=== PATIENT | female | born 1955 | race Caucasian/White ===

== ENCOUNTER 2024-12-15 13:24 | Emergency (ER) | payer MEDICARE, SELFPAY ==
[2024-12-15 13:27] VITALS: BMI 32.9
--- NOTE | 2024-12-15 13:29 | EKG_ITS ---
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
[2024-12-15 13:43] VITALS: BP 146/74; PULSE 70; RESP 18; TEMP 36.7; O2SAT 95
--- NOTE | 2024-12-15 13:45 | XR_ITS ---
Examination: AP upright portable chest single view TECHNIQUE: Portable AP upright chest single view Exam date and time: December 15, 2024, 1407 hours Comparison December 18, 2023 INDICATIONS: Onset chest pain today. FINDINGS: Normal heart size. No pneumonia or pulmonary edema. Prominent osteopenia. IMPRESSION: No pneumonia or pulmonary edema
--- NOTE | 2024-12-15 13:46 | EDNOTE_ITS ---
ED Chest Pain RME/HPI General Chief Complaint: Chest Pain Stated Complaint: LEFT FACE NUMBNESS/LEFT ARM PAIN SINCE 1300 Time Seen by Provider: 12/15/24 13:38 Arrival date/time: 12/15/24 13:24 RME / HPI RME / HPI narrative: 68-year-old female patient was brought in by family for evaluation regarding palpitation. Patient feels like having recurrence of A-fib started last night, it comes and goes getting worst for the last 30 minutes. Patient denies any chest pain. Denies any shortness of breath. Patient is currently taking labetalol, hydrochlorothiazide and lisinopril. Was seen by her horse identifier last year for one-time episode of A-fib. Currently not taking any blood thinner. Patient denies any cough denies any other complaints no medications taken prior travel. Related Data Allergies Allergy/AdvReac Type Severity Reaction Status Date / Time No Known Allergies Allergy Verified 12/15/24 13:26 Review of Systems Review of Systems Narrative Review of Systems: Review of system reviewed and within normal limits except mentioned in HPI ED Exam Narrative Physical exam: VITAL SIGNS: Reviewed. GENERAL APPEARANCE: Alert and interactive, follows commands, no acute distress, HEAD AND FACE: Non-traumatic. ENT: PERRL, pink conjunctivitis, eyelid no trauma, Mucous membrane moist. NECK: Supple, nontender, no nuchal rigidity. CHEST: No tenderness, no crepitus, no paradoxical movement, no retractions. LUNGS: Clear, well ventilated, symmetric, no rales, no wheezing, no ronchi, no stridor, good breath sounds bilaterally. HEART: Regular rate, regular rhythm, no murmur, no gallops. ABDOMEN: Soft, positive bowel sounds, nondistended, no guarding, nontender, no rebound, no masses, RECTAL: Deferred. GENITAL: Deferred. NEUROLOGICAL: Gross motor function intact sensory function intact, Appropriate for age. MUSCULOSKELETAL: low back nontender, full range of motion. EXTREMITIES: Nontender, full range of motion. SKIN: Color pink, dry, no rash, no lacerations, no abrasions, no contusions. LYMPHATICS: Deferred. Course Quality Measures none Orders Category Date Time Status [employer] Q4H START 00 Care 12/15/24 13:45 Active EKG (ED ONLY) *Do not use* NOW Care 12/15/24 13:29 Completed EKG (ED Only) Stat Exams 12/15/24 13:29 Draft XR chest 1V Stat Exams 12/15/24 13:45 Completed B-Type Natriuretic Peptide Stat Lab 12/15/24 13:54 Completed CBC Stat Lab 12/15/24 13:54 Completed Comprehensive Metabolic Panel Stat Lab 12/15/24 13:54 Completed Drug Screen,Urine Stat Lab 12/15/24 14:00 Completed Partial Thromboplastin Time Stat Lab 12/15/24 13:54 Completed Prothrombin Time with INR Stat Lab 12/15/24 13:54 Completed T4 (Thyroxine) Stat Lab 12/15/24 13:54 Completed TSH [Thyroid Stimulating Hormone] Stat Lab 12/15/24 13:54 Completed Troponin I Stat Lab 12/15/24 13:54 Completed Urinalysis, C/S if Indicated Stat Lab 12/15/24 14:00 Completed Vital Signs Vital signs: Vital Signs Temperature 98.1 F 12/15/24 13:43 Pulse Rate 70 12/15/24 13:43 Respiratory Rate 18 12/15/24 13:43 Blood Pressure 146/74 H 12/15/24 13:43 Pulse Oximetry (%) 95 12/15/24 13:43 Oxygen Delivery Method Room Air 12/15/24 13:43 Chest Pain MDM Narrative MDM Narrative:: 68-year-old female patient was brought in by family for evaluation regarding palpitation. Patient feels like having recurrence of A-fib started last night, it comes and goes getting worst for the last 30 minutes. Patient denies any chest pain. Denies any shortness of breath. Patient is currently taking labetalol, hydrochlorothiazide and lisinopril. Was seen by her horse identifier last year for one-time episode of A-fib. Currently not taking any blood thinner. Patient denies any cough denies any other complaints no medications taken prior travel. EKG shows sinus rhythm, ventricular rate of 84 beats minute, no ST segment elevation depression noted. Patient's workup today including cardiac workup all came back normal. Patient was placed on a monitor, cardiac, and it remains normal sinus rhythm, full throughout, no abnormality noted. Chest x-ray came back unremarkable. Patient's verbalized no recurrence of palpitation noted in the ED. Patient was advised to see horse identifier Tuesday. Patient data External records reviewed:: None Clinical information provided by:: patient and family Social determinants that could affect healthcare access:: none Patient has the following chronic illnesses:: Hypertension How is presenting disease/condition affected by chronic disease/condition?: exacerbated by Evaluation data The following diagnostics were reviewed and interpreted by me:: lab results, radiology exam(s) and EKG tracing(s) Lab and/or radiology exams considered but not ordered:: None Interpretation Summary: EKG shows sinus rhythm, ventricular rate of 84 beats minute, no ST segment elevation depression noted. Patient's workup today including cardiac workup all came back normal. Patient was placed on a monitor, cardiac, and it remains normal sinus rhythm, full throughout, no abnormality noted. Medications / Prescriptions Medications or Prescriptions considered but not ordered:: None Medication administrations:: None Consultations Consultation(s) initiated? (list below): No Diagnosis Chest Pain Differential Diagnosis: chest pain and other (A-fib) Most likely diagnosis given after review of the tests above:: Palpitation Admission Indicated Admission indicated?: not indicated Admission Request Was there a request for admission?: No Disposition Plan Disposition Plan: Discharge Discharge Attestation Discharge Attestation: The patient and all family members were given an opportunity to ask questions and understood the discharge instructions. Discharge instructions specifically effects, indications for sooner follow up or return to the emergency department, and the expected course of current diagnosis. Patient condition: Stable Discharge Plan Plan Patient Disposition: HOME (Self Care) Discharge Disposition comment: stable Prescriptions/Referrals Referrals: Blanca Kimbrough MD [Primary Care Provider] - In 1 week Problem List Clinical Impression: Palpitations Patient/Caregiver Discharge Instructions Discharge Activity: activity as tolerated Education Materials: ED Palpitations Additional Instructions: Thank you for the opportunity for serving you today. You are stable for discharged . You are advised to: Follow-up with your horse identifier in 1 to 2 days Return to ED for worsening of symptoms Print Language: Togolese Stand Alone Forms: Lydia Award Info., Patient Portal Info Letter JESSENIA/JACKIE Supervising Physician ANIL Supervising Physician: MD Yamel
[2024-12-15 14:13] LABS: Collection Type, Urine Clean Catch
[2024-12-15 14:15] LABS: Basophils # (Auto) 0.1 Thou/mm3 (0.0-0.2); Basophils % (Auto) 1 % (0-2.5); Eosinophils # (Auto) 0.2 Thou/mm3 (0.0-0.5); Eosinophils % (Auto) 2 % (0-10); Hematocrit 35.6 % (36.0-46.0); Hemoglobin 11.8 g/dL (12.0-16.0); Immature Granulocytes % (Auto) 0 % (0-0); Immature Granulocytes Auto 0.03 Thou/mm3 (0.00-0.00); Lymphocytes # (Auto) 1.2 Thou/mm3 (1.0-4.8); Lymphocytes % (Auto) 15 % (10-50); Mean Corpuscular HGB Conc 33.1 g/dl (31.0-37.0); Mean Corpuscular Hemoglobin 26.1 pg (25.0-35.0); Mean Corpuscular Volume 79 fL (80-100); Monocytes # (Auto) 0.8 Thou/mm3 (0.0-0.8); Monocytes % (Auto) 10 % (0-12); Neutrophils # (Auto) 5.5 Thou/mm3 (1.8-7.7); Neutrophils % (Auto) 71 % (37-80); Nucleated Red Blood Cell % 0 /100 WBC (0); Platelet Count 233 Thou/mm3 (140-440); RDW Standard Deviation 45.5 fL (36.4-46.3); Red Blood Count 4.52 Miln/mm3 (4.00-5.20); White Blood Count 7.7 Thou/mm3 (3.6-11.0)
[2024-12-15 14:18] LABS: Bilirubin,Urine Negative (Negative); Blood,Urine Negative (Negative); Clarity,Urine Clear (Clear/Hazy); Color,Urine Lt-Yellow (Lt Yel-Yel); Culture Indicated,Urine Not Indicated; Glucose, Urine Negative (Negative); Hyaline Casts,Urine < 1 /hpf (0-1); Ketones,Urine Negative (Negative); Leukocyte Esterase,Urine Positive (Negative); Nitrite,Urine Negative (Negative); PH,Urine 6.5 (5.0-7.0); Protein,Urine Negative (Neg - Trace); RBC,Urine 2 /hpf (0-3); Specific Gravity,Urine 1.011 (1.001-1.035); Squamous Epithelial Cell,Urine < 1 /hpf (0-5); Urobilinogen,Urine Negative mg/dL (0.0-1.0); WBC,Urine 2 /hpf (0-5)
[2024-12-15 14:28] LABS: Amphetamine/Methamp Scrn,U Negative (Negative); Barbiturate Screen,Urine Negative (Negative); Benzodiazepines Screen,Urine Negative (Negative); Benzoylecgonine Screen, Ur Negative (Negative); Fentanyl Screen,Urine Negative (Negative); Opiate Screen,Urine Negative (Negative); THC Screen,Urine Negative (Negative)
[2024-12-15 14:33] LABS: Partial Thromboplastin Time 25.7 Seconds (22.0-36.0); Prothrombin Time 10.9 Seconds (9.0-12.2)
[2024-12-15 14:37] LABS: B-Type Natriuretic Peptide 36 pg/mL (0-100)
[2024-12-15 14:41] LABS: Alanine Aminotransferase 26 U/L (10-49); Albumin, Serum 4.5 gm/dL (3.4-4.8); Alkaline Phosphatase 58 U/L (46-116); Anion Gap 9 (7-16); Aspartate Amino Transferase 21 U/L (0-34); BUN/Creatinine Ratio 21 Ratio (12-20); Bilirubin,Total 0.9 mg/dL (0.3-1.2); Blood Urea Nitrogen 19 mg/dL (9-23); Carbon Dioxide 25.6 mMol/L (20.0-31.0); Chloride 107 mMol/L (98-107); Creatinine (Component) 0.9 mg/dL (0.6-1.3); Estimated Creatinine Clearance 59.2 mL/min (>60); Globulin 2.3 gm/dL (2.3-3.5); Glucose 117 mg/dL (74-106); Osmolality,Calculated 286 (275-295); Potassium 3.6 mMol/L (3.4-5.1); Sodium 142 mMol/L (136-145); Thyroid Stimulating Hormone 1.18 uIU/mL (0.55-4.78); Total Protein 6.8 gm/dL (5.7-8.2); Troponin I < 0.002 ng/mL (0.0-0.045); eGFR > 60 See Note
[2024-12-15 15:03] VITALS: BP 101/66; PULSE 70; PULSE 73; RESP 18; TEMP 36.6; O2SAT 96
[2024-12-15 15:03] LABS: T4 (Thyroxine) 9.6 mcg/dL (4.5-10.9)
--- NOTE | 2024-12-15 15:19 | PC.NURSE ---
PT CAME IN TO ED WITH FOR HEART PALPATIONS THAT STARTED YESTERDAY. PT STATES THAT LEFTSIDE NUMBNESS TO FACE AND HAND
[2024-12-15 16:00] VITALS: BP 113/64; PULSE 66; RESP 15; O2SAT 97
== END 2024-12-15 16:00 | disposition home or self-care (01) ==
PROVIDERS: Nurse Practitioner Family; Emergency Provider Emergency Medicine; PCP Family Medicine
DX: R00.2 Palpitations (principal); R07.9 Chest pain, unspecified; R94.31 Abnormal electrocardiogram [ECG] [EKG]; I10 Essential (primary) hypertension; I48.91 Unspecified atrial fibrillation
CPT/HCPCS: 36415; 71045; 80053; 80307; 81001; 83880; 84436; 84443; 84484; 85025; 85610; 85730; 93005; 99283